=== PATIENT | male | born 1945 | race Caucasian/White ===

== ENCOUNTER → 2017-12-26 | Outpatient (CLI) | payer MEDICARE, BC ==
[~2017-12-26] MED LIST: ALLO100T30 PO; AMLO5TAB2 PO; ASCO500T7 PO; CALC0.25 PO; CHOL10003 PO; CLON0.1T PO; COLC0.6T37 PO; DOCU-180 PO; FURO-92 PO; Fiber PO; HYDR25TA11 PO; LOSA100T6 PO; MAGN400T7 PO; MYCO500T PO; PHOS250T PO; PRED2.5T PO; SILD25TA PO; TACR1CAP4 PO; TAMS-11 PO; TRAZ100T15 PO
[2017-12-26 10:27] LABS: ALBUMIN 3.4 g/dL (3.4-5.0); ANION GAP 6 mmol/L (5-15); CALCIUM 9.1 mg/dL (8.5-10.1); CHLORIDE 105 mmol/L (98-107)
[2017-12-26 10:31] LABS: ALANINE AMINOTRANSFERASE 16 U/L (12-78); ALKALINE PHOSPHATASE 62 U/L (45-117); BILIRUBIN,TOTAL 0.9 mg/dL (0.2-1.0); CREATININE 2.04 mg/dL (0.7-1.3); TOTAL PROTEIN 6.2 g/dL (6.4-8.2)
== END | disposition home or self-care (01) ==
LOC: STAR 09:21
PROVIDERS: ATTEND Orthopaedic Surgery
DX: Z01.818 Encounter for other preprocedural examination (principal); M17.11 Unilateral primary osteoarthritis, right knee
CPT/HCPCS: 36415; 80053; 87081